=== PATIENT | male | born 2000 | race Caucasian/White ===

== ENCOUNTER 2025-01-01 10:55 | Emergency (ER) | payer MEDICAID ==
[~2025-01-01] VITALS: Ht 182.9 cm; Wt 91.0 kg
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
[2025-01-01] MEDS ORDERED: BACDST PO (11:57)
[2025-01-01] MEDS: TETANUS-DIPTH-ACEL PERTUSSIS 0.5ML SYR Tdap IM ONE (12:00)
[2025-01-01 12:04] VITALS: BP 127/98; PULSE 109; RESP 18; TEMP 98.4; O2SAT 96
== END 2025-01-01 12:05 | disposition home or self-care (01) ==
LOC: ER 10:55
DX: S30.1XXA Contusion of abdominal wall, initial encounter (principal); F12.90 Cannabis use, unspecified, uncomplicated; W54.0XXA Bitten by dog, initial encounter; Y93.89 Activity, other specified; Y92.89 Other specified places as the place of occurrence of the external cause; Y99.8 Other external cause status
CPT/HCPCS: 90471; 90715